=== PATIENT | male | born 1995 | race American Indian/Alaskan Native ===

== ENCOUNTER 2018-08-26 22:54 | Emergency (ER) | payer MEDICAID, OTHER ==
[2018-08-26 23:03] VITALS: BP 142/89; PULSE 54; RESP 18; TEMP 99.1; O2SAT 100
--- NOTE | 2018-08-27 00:04 | C.PDOC ---
History Of Present Illness 22 year old male presents to the ER with a complaint of lower back pain that began [employer]. 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 He now complains of pain to the lower back and radiates to the right. Denies weakness, numbness, or incontinence. Time Seen by Provider: 08/26/18 23:05 Chief Complaint (Nursing): Back Pain History Per: Patient History/Exam Limitations: no limitations Onset/Duration Of Symptoms: Hrs Current Symptoms Are (Timing): Still Present Quality Of Discomfort: Unable To Describe Previous Symptoms: None Associated Symptoms: None Exacerbating Factor(s): Nothing Recent travel outside of the [place]: No Past Medical History Reviewed: Historical Data, Nursing Documentation, Vital Signs Vital Signs: Last Vital Signs Temp 99.1 F 08/26/18 22:58 Pulse 54 L 08/26/18 22:58 Resp 18 08/26/18 22:58 BP 142/89 08/26/18 22:58 Pulse Ox 100 08/26/18 22:58 Family History: States: No Known Family Hx - Social History Hx Alcohol Use: Yes Hx Substance Use: No - Immunization History Hx Tetanus Toxoid Vaccination: Yes Hx Influenza Vaccination: No Hx Pneumococcal Vaccination: No Review Of Systems Genitourinary: Negative for: Dysuria, Incontinence, Hematuria Musculoskeletal: Positive for: Back Pain Neurological: Negative for: Weakness, Numbness Physical Exam - Physical Exam Appears: Non-toxic Skin: Normal Color, Warm, Dry Head: Atraumatic, Normacephalic Eye(s): bilateral: Normal Inspection Back: No Vertebral Tenderness, Paraspinal Tenderness (Greater to right), Straight Leg Raising (Normal) Extremity: Normal ROM (x4) Pulses: Left Dorsalis Pedis: Normal, Right Dorsalis Pedis: Normal Neurological/Psych: Oriented x3, Normal Speech, Normal Motor, Normal Sensation Gait: Steady ED Course And Treatment O2 Sat by Pulse Oximetry: 100 (Room air) Pulse Ox Interpretation: Normal - Other Rad LS spine x-ray X-Ray: Interpreted by Me, Viewed By Me Interpretation: No acute fractures or dislocations. Progress Note: LS spine x-ray ordered, results were negative. Motrin administered. Patient reports improvement of pain, he is ambulatory in the ER with a steady gait, vitals are stable, will discharge home with Rx and instructions to follow up with PMD for further evaluation. 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 - Scribe Statement The provider has reviewed the documentation as recorded by the Scribe Alexandru Pham All medical record entries made by the Graysonibnasim were at my direction and personally dictated by me. I have reviewed the chart and agree that the record accurately reflects my personal performance of the history, physical exam, medical decision making, and the department course for this patient. I have also personally directed, reviewed, and agree with the discharge instructions and disposition.
--- NOTE | 2018-08-27 07:32 | RAD ---
Date of service: 08/26/2018 PROCEDURE: Radiographs of the Lumbar Spine. 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 FINDINGS: BONES: Normal alignment. No listhesis. No fracture. DISC SPACES: Unremarkable. OTHER FINDINGS: None. IMPRESSION: Unremarkable radiographs of the lumbar spine.
== END 2018-08-27 00:37 | disposition home or self-care (01) ==
LOC: C.ER 22:54
DX: M54.5 Low back pain (principal)